=== PATIENT | male | born 1950 | race Caucasian/White ===

== ENCOUNTER 2019-07-07 12:26 | Emergency (ER) | payer MEDICARE, MEDICAID, SELFPAY ==
[2019-07-07] VITALS (10 sets, daily range): BP systolic 115–144; BP diastolic 59–81; PULSE 75–92; RESP 11–17; TEMP 36.6; O2SAT 95–100
--- NOTE | ~2019-07-07 | XR_ITS ---
EXAMINATION: XR chest 2V DATE: 07/07/2019 13:42 INDICATION: Regurgitation. TECHNIQUE: Frontal and lateral views of the chest were obtained on 3 radiographs. COMPARISON: None. FINDINGS: The chest demonstrates clear lungs without pneumonia, pleural effusion, or pneumothorax. Th e heart size is normal. Calcified hilar and mediastinal lymph nodes are consistent with old granuloma tous disease. IMPRESSION: 1. No acute cardiopulmonary disease. Reviewed, dictated and finalized at location A. WARE DEVELOPER INTERN
--- NOTE | ~2019-07-07 | CT_ITS ---
EXAMINATION:CT chest w con DATE: 07/07/2019 14:30 INDICATION: Regurgitation. TECHNIQUE: Computed tomography (CT) of the chest was performed with 75 mL Omnipaque 350 intravenous c ontrast. Automated exposure control and iterative reconstruction technique were employed. The dose-le ngth product (DLP) was 154.15 mGy-cm. COMPARISON: None. FINDINGS: There is mild scarring at the lung apices. There is moderate emphysema. There is mild depen dent atelectasis bilaterally. Calcified pulmonary nodules and calcified hilar and mediastinal lymph n odes are consistent with old granulomatous disease. No pleural effusion. The heart size is normal. Le ft ventricular hypertrophy is noted. No pericardial effusion. There are coronary artery calcification s. Calcifications in the liver and spleen are consistent with old granulomatous disease. There is mil d thoracic spondylosis. IMPRESSION: 1. Moderate emphysema. 2. Left ventricular hypertrophy of the heart. Reviewed, dictated and finalized at location A. HOUSE DISTRIBUTION ASSOCIATE
--- NOTE | 2019-07-07 12:50 | ECG_ITS ---
Measurements Intervals [place] Rate: 75 P: 66 MD: 170 QRS: 0 QRSD: 89 T: 162 QT: 382 QTc: 429 Interpretive Statements SINUS RHYTHM WITH SINUS ARRHYTHMIA POSSIBLE RIGHT ATRIAL ENLARGEMENT POSSIBLE LEFT ATRIAL ENLARGEMENT ST-T WAVE ABNORMALITY IN ANTEROLAT/LAT LEADS- CONSIDER ISCHEMIA ABNORMAL ECG Electronically Signed On 07-07-2019 16:10:31 SPRING TACKER by Den Huber D.O.
[2019-07-07 13:14] LABS: Basophils Absolute Auto 0.09 K/mm3 (0.00-0.10); Basophils Percent Auto 0.9 % (0.0-1.0); Eosinophils Absolute Auto 0.34 K/mm3 (0.02-0.50); Eosinophils Percent Auto 3.5 % (1.0-6.0); Hemoglobin 15.5 g/dL (12.4-15.3); Immature Granulocyte Absolute 0.03 K/mm3 (0.00-0.00); Immature Granulocyte Percent A 0.3 % (0.0-0.0); Lymphocytes Absolute Auto 2.77 K/mm3 (1.10-4.50); Lymphocytes Percent Auto 28.1 % (18.0-42.0); Mean Corpuscular HGB Conc 33.7 g/dL (32.0-36.0); Mean Corpuscular Hemoglobin 30.5 pg (27.0-31.0); Mean Corpuscular Volume 90.6 fL (78.0-102.0); Mean Platelet Volume 10.6 fl (8.7-11.0); Monocytes Absolute Auto 0.87 K/mm3 (0.10-0.90); Monocytes Percent Auto 8.8 % (2.0-11.0); Neutrophils Absolute Auto 5.8 K/mm3 (1.7-7.2); Neutrophils Percent Auto 58.4 % (50.0-70.0); Platelet Count Result 364 K/mm3 (150-420); Red Blood Count 5.08 M/mm3 (4.70-6.10); Red Cell Distribution Width 13.5 % (11.6-14.4); White Blood Count 9.9 K/mm3 (4.8-10.8)
[2019-07-07] MEDS: ONDANSETRON INJ 4 MG/2 ML VIAL IV PUSH ×2 (13:26→15:01)
[2019-07-07 13:28] LABS: Partial Thromboplastin Time 27.8 SEC (22.3-31.6); Prothrombin Time 10.3 Seconds (9.64-11.0)
[2019-07-07 13:31] LABS: Alanine Aminotransferase 24 U/L (16-63); Albumin Level 4.2 g/dL (3.4-5.0); Alkaline Phosphatase 62 U/L (46-116); Anion Gap 17.5 mmol/L (7-16); Aspartate Amino Transferase 22 U/L (15-37); Bilirubin,Total 0.7 mg/dL (0.00-1.00); Blood Urea Nitrogen 16 mg/dL (7-18); Calcium 9.5 mg/dL (8.5-10.1); Carbon Dioxide 23 mmol/L (21-32); Chloride 103 mmol/L (98-108); Estimated Glomerular Filt Rate > 60; Glucose 99 mg/dL (70-99); Osmolality Calculated 289 mOsm/kg (285-295); Potassium 4.5 mmol/L (3.5-5.1); Sodium 139 mmol/L (136-145); Total Protein 8.9 g/dL (6.4-8.2)
[2019-07-07 13:32] LABS: Troponin I < 0.02 ng/mL (0.00-0.056)
--- NOTE | 2019-07-07 13:35 | ED.GENADULT ---
HPI - General Adult General Chief complaint: Unspecified Stated complaint: cant swallow Time Seen by Provider: 07/07/19 13:00 Source: patient and family Mode of arrival: ambulatory Limitations: no limitations History of Present Illness HPI narrative: 69-year-old man with history of heartburn comes in today complaining of regurgitation of any food that he has been trying to eat since last night. He states that after dinner he began to have discomfort in his chest and throat but no difficulty breathing. He says he has been unable to keep anything down since the onset. MD complaint: Can't swallow Onset (ago): hour(s) (18) Location: chest Radiation: non-radiation Relieving factors: none Exacerbating factors: eating Associated symptoms: denies other symptoms Treatments prior to arrival: none Related Data Home Medications Medication Instructions Recorded Confirmed mirtazapine 30 mg PO DAILY 07/07/19 07/07/19 sertraline 75 mg PO DAILY 07/07/19 07/07/19 trazodone 100 mg PO HS 07/07/19 07/07/19 Allergies Allergy/AdvReac Type Severity Reaction Status Date / Time NKDA Allergy Unknown Uncoded 10/25/08 08:41 Review of Systems Constitutional: Constitutional: Denies chills, Denies fatigue, Denies fever(s) and Denies weakness ENT: Reports dysphagia, Denies nasal congestion and Denies sore throat Cardiovascular: Cardiovascular: Reports chest pain ( with vomiting) and Denies radiating jaw, neck or arm pain Respiratory: Respiratory: Denies cough, Denies dyspnea and Denies wheezing Gastrointestinal: Gastrointestinal: Denies abdominal pain, Denies nausea and Reports vomiting ((regurgitation).) Genitourinary: Genitourinary: Denies hematuria, Denies oliguria and Denies dysuria Musculoskeletal: Musculoskeletal: Denies back pain, Denies joint swelling and Denies muscle cramps Integumentary/Breasts: Skin/Breast: Denies pruritus, Denies erythema and Denies rash Neurologic: Denies vertigo, Denies dizziness and Denies syncope Psychiatric: Psychiatric: Denies anxiety and Denies depression Endocrine: Endocrine: Denies polydipsia and Denies polyuria Hematologic/Lymphatic: Hematologic/Lymphatic: Denies easy bleeding and Denies easy bruising Allergic/Immunologic: Allergic/Immunologic: Denies lip swelling and Denies wheezing PMFSH Past Medical History Medical History Anxiety Depression Heartburn Surgical History Surgical History History of appendectomy Social History Social History (Updated 07/07/19 @ 15:36 by Luiz River MD) Smoking status: Former smoker Alcohol use details: drinks socially Substance use: never Living arrangements: with family Exam Const: General: healthy appearing, no acute distress and alert Orientation/consciousness: patient oriented x3 HENMT: Mouth: Yes Normal oral and palatal mucosa present and Yes moist mucous membranes Throat: posterior oropharynx normal and uvula midline Eyes: Conjunctivae: conjunctivae normal Pupils: Equal, round and reactive pupils present EOM: EOMs intact bilaterally Neck: Neck: normal visual inspection ( no masses or swelling or tenderness.), no lymphadenopathy and no meningeal signs Chest: Chest palpation & inspection: normal inspection of the chest and no tenderness Resp: Effort & Inspection: normal respiratory effort and not labored Auscultation: clear to auscultation bilaterally, no crackles, no rales and no rhonchi Cardio: Rate: regular rate Rhythm: regular rhythm Heart sounds: no murmurs GI: Inspection: non-distended GI Palp: Yes Soft to palpation, No Tenderness to palpation present (GI), No Guarding due to palpation present (GI) and No Rigid due to palpation Auscultation: normal bowel sounds Skin: General skin exam: normal color, no jaundice and no pallor Rashes: no rashes Neuro: General: patient oriented x3, moves all
[2019-07-07 14:42] LABS: Add Urine Microscopic? NO; Appearance Urine Clear (Clear); Bilirubin Urine Negative (Negative); Blood Urine Negative (Negative); Color Urine Yellow (Yellow); Glucose Urine UA Negative (Negative); Ketones Urine Negative (Negative); Leukocyte Esterase Ur Negative LEU/UL (Negative); Nitrate Urine Negative (Negative); Protein Urine Negative (Negative); Specific Grav Ur 1.015 (1.010-1.020); Urobilinogen Urine 0.2 mg/dL (0.2-1.0); pH Urine 5.5 (5.0-8.0)
--- NOTE | 2019-07-07 14:47 | PC.NURSE ---
PT TAKEN TO RADIOLOGY DEPARTMENT FOR VQ SCAN
--- NOTE | 2019-07-07 15:37 | PC.NURSE ---
PT TO BE TRANSFERRED BY PRIVATE VEHICLE (SPOUSE DRIVING) TO [facility] FOR OUTPATIENT ENDOSCOPY BY DR. TRUJILLO
== END 2019-07-07 15:47 | disposition home or self-care (01) ==
PROVIDERS: Emergency Provider Emergency Medicine; PCP Nurse Practitioner
DX: K22.2 Esophageal obstruction (principal); Z87.891 Personal history of nicotine dependence; R07.9 Chest pain, unspecified
CPT/HCPCS: 36415; 71046; 71260; 80053; 81003; 84484; 85025; 85610; 85730; 93005; 96374; 96376; 99284; J2405; Q9965

== ENCOUNTER 2019-07-07 16:26 | Day surgery (SDC) | payer MEDICARE, MEDICAID, SELFPAY ==
[2019-07-07 16:44] VITALS: BMI 20.9
[2019-07-07] MEDS: LACTATED RINGERS 1,000 ML 150 ML IV CONT (16:51)
[2019-07-07 16:52] VITALS: BP 139/78; PULSE 102; RESP 22; O2SAT 98
--- NOTE | 2019-07-07 16:52 | WPDANESEPPF ---
Anes - Initial Pre Proc Eval Procedure: Operation Date: 07/07/19 16:45 Proposed Procedures p Esophagogastroduodenoscopy - Naveen Murrieta MD Date/Time: 07/07/19 16:52 Surgeon: Luiz River MD Pre Op Diagnosis: FOOD BOLUS Patient Data Age: 69 Gender: M Height: 1.68 m Weight: 59 kg Allergies Allergy/AdvReac Type Severity Reaction Status Date / Time NKDA Allergy Unknown Uncoded 10/25/08 08:41 Home Medications Medication Instructions Recorded Confirmed Type mirtazapine 30 mg PO DAILY 07/07/19 07/07/19 History sertraline 75 mg PO DAILY 07/07/19 07/07/19 History trazodone 100 mg PO HS 07/07/19 07/07/19 History Patient hx anesthesia problems: none Family hx anesthesia problems: none [facility] Social History Social History (Updated 07/07/19 @ 15:36 by Luiz River MD) Smoking status: Former smoker Substance use: never Anes - Eval Final PreProcedure Day of Procedure 07/07/19 16:52 Patient weight: normal Heart: regular rate and rhythm Lungs: clear to auscultation and normal air movement Airway: Mallampati scale class 1 Neurological: alert and oriented Last oral intake: >/= 8 hours ASA classification: II Emergent: yes Anesthetic plan: proceed Anesthesia type and monitoring: general and standard monitoring Informed Consent: The patient's anesthetic plan and its attendant risks and benefits were discussed with the patient/family/POA. Questions were solicited and answers provided to the satisfaction of the patient/family/POA.
--- NOTE | 2019-07-07 16:54 | P.CONGI_ITS ---
Assessment and Plan Assessment and plan (1) Acute esophageal obstruction: Code(s): K22.2 - Esophageal obstruction Status: Acute Assessment and Plan: will proceed with urgent EGD, more recommendations after endoscopy. (2) Heartburn: Code(s): R12 - Heartburn Status: Acute (3) Depression: Code(s): F32.9 - Major depressive disorder, single episode, unspecified Status: Acute GI Consult Note Consult date/time: 07/07/19 16:54 HPI: Farooq Franks is a 69 year old male with dysphagia to solids, last time he ate was a steak yesterday and unable to eat anything since then. He went to [place] [facility], CT chest showed mass in mid esophagus (food bolus most likely), never had EGD. Review of Systems Constitutional: Constitutional: Denies headache(s) and Denies weakness Eyes: Eyes: Denies blurry vision ENT: Denies Normal hearing present, Denies headache(s) and Denies neck pain Cardiovascular: Cardiovascular: Denies chest pain and Denies dyspnea Respiratory: Respiratory: Denies dyspnea Gastrointestinal: Gastrointestinal: Reports no additional gastrointestinal complaints Genitourinary: Genitourinary: Denies dysuria Musculoskeletal: Musculoskeletal: Denies neck pain Integumentary/Breasts: Skin/Breast: Denies dry skin Neurologic: Reports Normal hearing present, Denies headache(s) and Denies weakness Psychiatric: Psychiatric: Denies anxiety Endocrine: Endocrine: Denies change in body appearance Hematologic/Lymphatic: Hematologic/Lymphatic: Denies easy bleeding Allergic/Immunologic: Allergic/Immunologic: Denies urticaria PMF Social History Social History (Updated 07/07/19 @ 15:36 by Luiz River MD) Smoking status: Former smoker Substance use: never Meds Home Medications and Allergies Home Medications Medication Instructions Recorded Confirmed Type mirtazapine 30 mg PO DAILY 07/07/19 07/07/19 History sertraline 75 mg PO DAILY 07/07/19 07/07/19 History trazodone 100 mg PO HS 07/07/19 07/07/19 History Allergies Allergy/AdvReac Type Severity Reaction Status Date / Time NKDA Allergy Unknown Uncoded 10/25/08 08:41 Vital Signs Vital Signs - 24 hr 07/07/19 16:52 Pulse Rate 102 H Respiratory Rate 22 H Blood Pressure 139/78 Pulse Oximetry 98 Exam Const: Other: uncomfortable because unable to swallow HENMT: General nose exam: Normal nares present Eyes: General: appearance normal, both eyes and all related structures Neck: Neck: no JVD Resp: Auscultation: clear to auscultation bilaterally Cardio: Rate: regular rate Rhythm: regular rhythm GI: Inspection: non-distended GI Palp: Yes Soft to palpation Skin: General skin exam: normal color Neuro: General: gait normal Speech: normal speech Extrem: General: normal to inspection Psych: Mental Status: mental status grossly normal
[2019-07-07 17:47] VITALS: BP 113/78; PULSE 91; RESP 32; O2SAT 96
[2019-07-07 17:57] VITALS: BP 119/65; PULSE 89; RESP 24; O2SAT 90
[2019-07-07 18:07] VITALS: BP 124/63; PULSE 89; RESP 24; O2SAT 92
== END 2019-07-07 18:35 | disposition home or self-care (01) ==
PROVIDERS: Internal Medicine Gastroenterology; PCP Nurse Practitioner; Visit Provider Emergency Medicine
PROC: 0DJ08ZZ Inspection of Upper Intestinal Tract, Via Natural or Artificial Opening Endoscopic (ICD-10-PCS; CPT 43235; principal; 2019-07-07 16:45)
DX: T18.128A Food in esophagus causing other injury, initial encounter (principal); K29.50 Unspecified chronic gastritis without bleeding; Z87.891 Personal history of nicotine dependence; F32.9 Major depressive disorder, single episode, unspecified
CPT/HCPCS: 43239; 43247; 88305; 88342; J0330; J2704; J7120

== ENCOUNTER 2019-08-18 00:12 | Day surgery (SDC) | payer MEDICARE, MEDICAID, SELFPAY ==
[2019-08-12 14:09] VITALS: BMI 22.0
[2019-08-18 10:10] VITALS: BP 121/62; PULSE 73; RESP 16; TEMP 36.5; O2SAT 97
[2019-08-18] MEDS: LACTATED RINGERS 1,000 ML 150 ML IV CONT (10:16)
--- NOTE | 2019-08-18 10:41 | P.PNAN_ITS ---
Anes - Initial Pre Proc Eval Procedure: Operation Date: 08/18/19 11:00 Proposed Procedures p Esophagogastroduodenoscopy - Naveen Murrieta MD Date/Time: 08/18/19 10:41 Surgeon: Naveen Murrieta MD Pre Op Diagnosis: Dysphagia Patient Data Age: 69 Gender: M Height: 5 ft 6 in Weight: 65.4 kg Last Vital Signs Temp 97.7 F 08/18/19 10:10 Pulse 73 08/18/19 10:10 Resp 16 08/18/19 10:10 BP 121/62 08/18/19 10:10 Pulse Ox 97 08/18/19 10:10 Allergies Allergy/AdvReac Type Severity Reaction Status Date / Time NKDA Allergy Unknown Uncoded 08/12/19 14:08 Home Medications Medication Instructions Recorded Confirmed Type mirtazapine 30 mg PO DAILY 07/07/19 08/12/19 History omeprazole 20 mg PO BID #60 cap 07/07/19 08/12/19 Rx sertraline 75 mg PO DAILY 07/07/19 08/12/19 History Patient hx anesthesia problems: none Family hx anesthesia problems: none [facility] Social History Social History (Updated 07/07/19 @ 15:36 by Luiz River MD) Smoking status: Former smoker Substance use: never Anes - Eval Final PreProcedure Day of Procedure 08/18/19 10:41 Patient weight: normal Heart: regular rate and rhythm Lungs: clear to auscultation Airway: Mallampati scale class II Neurological: alert and oriented Last oral intake: >/= 8 hours ASA classification: II Emergent: no Anesthetic plan: proceed Anesthesia type and monitoring: general GIVS and standard monitoring Informed Consent: The patient's anesthetic plan and its attendant risks and benefits were discussed with the patient/family/POA. Questions were solicited and answers provided to the satisfaction of the patient/family/POA.
--- NOTE | 2019-08-18 11:13 | PM.HPGS ---
History of Present Illness History of Present Illness Consent: Risks, benefits, and alternatives have been discussed and questions answered. Patient agrees to proceed with procedure. Chief complaint: Dysphagia Narrative: Farooq Franks is a 69 year old male dysphagia with EGD 06/2019 because food impaction Review of Systems Constitutional: Constitutional: Denies headache(s) and Denies weakness Eyes: Eyes: Denies blurry vision ENT: Reports Normal hearing present, Denies headache(s) and Denies neck pain Cardiovascular: Cardiovascular: Denies chest pain and Denies dyspnea Respiratory: Respiratory: Denies dyspnea Gastrointestinal: Gastrointestinal: Reports no additional gastrointestinal complaints Genitourinary: Genitourinary: Denies dysuria Musculoskeletal: Musculoskeletal: Denies neck pain Integumentary/Breasts: Skin/Breast: Denies dry skin Neurologic: Reports Normal hearing present, Denies headache(s) and Denies weakness Psychiatric: Psychiatric: Denies anxiety Endocrine: Endocrine: Denies change in body appearance Hematologic/Lymphatic: Hematologic/Lymphatic: Denies easy bleeding Allergic/Immunologic: Allergic/Immunologic: Denies urticaria [facility] Social History Social History (Updated 07/07/19 @ 15:36 by Luiz River MD) Smoking status: Former smoker Substance use: never Meds Home Medications and Allergies Home Medications Medication Instructions Recorded Confirmed Type mirtazapine 30 mg PO DAILY 07/07/19 08/12/19 History omeprazole 20 mg PO BID #60 cap 07/07/19 08/12/19 Rx sertraline 75 mg PO DAILY 07/07/19 08/12/19 History Allergies Allergy/AdvReac Type Severity Reaction Status Date / Time NKDA Allergy Unknown Uncoded 08/12/19 14:08 Vital Signs Vital Signs - 24 hr 08/18/19 10:10 Temperature 97.7 F Pulse Rate 73 Respiratory Rate 16 Blood Pressure 121/62 Pulse Oximetry 97 Exam Const: General: comfortable and no acute distress HENMT: General nose exam: Normal nares present Eyes: General: appearance normal, both eyes and all related structures Neck: Neck: no JVD Resp: Auscultation: clear to auscultation bilaterally Cardio: Rate: regular rate Rhythm: regular rhythm GI: Inspection: non-distended GI Palp: Yes Soft to palpation Skin: General skin exam: normal color Neuro: General: gait normal Speech: normal speech Extrem: General: normal to inspection Psych: Mental Status: mental status grossly normal Assessment and Plan Assessment and plan (1) Dysphagia: Code(s): R13.10 - Dysphagia, unspecified Status: Acute Assessment and Plan: will proceed with egd to reassess (2) Heartburn: Code(s): R12 - Heartburn Status: Acute
[2019-08-18 11:33] VITALS: BP 120/75; PULSE 80; RESP 19; O2SAT 100
[2019-08-18 11:43] VITALS: BP 119/68; PULSE 78; RESP 19; O2SAT 100
[2019-08-18 11:53] VITALS: BP 133/68; PULSE 75; RESP 16; O2SAT 97
== END 2019-08-18 13:03 | disposition home or self-care (01) ==
PROVIDERS: PCP Nurse Practitioner; Visit Provider Internal Medicine Gastroenterology
PROC: 0DJ08ZZ Inspection of Upper Intestinal Tract, Via Natural or Artificial Opening Endoscopic (ICD-10-PCS; CPT 43235; principal; 2019-08-18 11:00)
DX: K22.2 Esophageal obstruction (principal); K21.0 Gastro-esophageal reflux disease with esophagitis; K29.50 Unspecified chronic gastritis without bleeding; K44.9 Diaphragmatic hernia without obstruction or gangrene; Z87.891 Personal history of nicotine dependence
CPT/HCPCS: 43239; 43249; 88305; C1726; J2704; J7120

== ENCOUNTER 2019-09-04 07:40 | Emergency (ER) | payer MEDICARE, MEDICAID, SELFPAY ==
--- NOTE | ~2019-09-04 | XR_ITS ---
EXAMINATION: XR chest 1V portable DATE: 09/04/2019 07:55 INDICATION: Dyspnea. TECHNIQUE: frontal view of the chest was obtained. COMPARISON: Chest radiograph and CT dated 07/07/2019 FINDINGS: Mild to moderate emphysema better appreciated on prior CT. Interval development of a basilar predomin ant increased interstitial pattern with peripheral Jh B-lines in the mid to lower lung zones. Mil d groundglass opacities in the lower lung zones. Tiny left pleural effusion with blunting at the left costophrenic angle. No pneumothorax. The cardiomediastinal silhouette is normal. Mild upper thoracic dextrocurvature. IMPRESSION: 1. New basilar predominant increased interstitial pattern with mild groundglass opacity and curly B l doreen most likely mild pulmonary edema although differential includes pneumonia. 2. Mild to moderate emphysema. Reviewed, dictated and finalized at location A. IMPRESSION: 1. New basilar predominant increased interstitial pattern with mild groundglass opacity and curly B lines most likely mild pulmonary edema although differenti al includes pneumonia. 2. Mild to moderate emphysema.
--- NOTE | ~2019-09-04 | CT_ITS ---
EXAMINATION: CTA chest PE protocol DATE: 09/04/2019 08:57 INDICATION: Dyspnea TECHNIQUE: Computed tomography (CT) pulmonary angiogram of the chest was performed with 100 mL Omnipa que-350 intravenous contrast. Additional 3D reconstructions utilizing coronal maximum intensity proje ction (MIP) were performed. Automated exposure control and iterative reconstruction technique were em ployed. The dose-length product was 225.72 mGy-cm. COMPARISON: None FINDINGS: Excellent contrast opacification of the pulmonary arteries. There is mild streak artifact from dense contrast in the superior vena cava and right atrium. Mild scattered respiratory motion artifact most prominent at the lower lung zones where it decreases sensitivity in the basilar subsegmental pulmonar y arteries. No pulmonary embolism. Mild to moderate emphysema. Diffuse smooth septal line thickening most prominent peripherally and in the lower lung zones with additional scattered peripheral predomin ant groundglass opacities most likely related to moderate interstitial and alveolar pulmonary edema. Small left and [id number] right pleural effusions. Mild compressive atelectasis in the depende nt lower lobes. Diffuse bronchial wall thickening/peribronchial cuffing. Heart size is normal. Athero sclerotic coronary artery calcifications. Aortic valve calcification. No pericardial effusion. Thorac ic aorta is normal in caliber with no dissection. Calcified bilateral hilar and mediastinal lymph nod es consistent with old granulomatous disease. No pathologically enlarged thoracic lymphadenopathy. Sm all sliding-type hiatal hernia versus wall thickening the distal esophagus. Hepatic and splenic [place] is consistent with old granulomatous disease. Mild scattered degenerative skeletal changes in the spine and bilateral shoulders. IMPRESSION: 1. No pulmonary embolism. Sensitivity decreased in the smaller subsegmental pulmonary arteries at the lung bases by some respiratory motion. 2. Diffuse interstitial and mild airspace opacities throughout both lungs most likely representing mo derate interstitial and alveolar pulmonary edema. Superimposed pneumonia not excludable but considere d less likely. 3. Small left and [id number] right pleural effusions. 4. Mild to moderate emphysema. Reviewed, dictated and finalized at location A. IMPRESSION: 1. No pulmonary embolism. Sensitivity decreased in the smaller subsegmental pul monary arteries at the lung bases by some respiratory motion. 2. Diffuse interstitial and mild airspace opacities throughout both lungs most likely representing moderate interstitial and alveolar pulmonary edema. Superim posed pneumonia not excludable but considered less likely. 3. Small left and [id number] right pleural effusions. 4. Mild to moderate emphysema.
[2019-09-04 07:41] VITALS: BP 115/80; PULSE 110; RESP 22; TEMP 36.6; O2SAT 95
--- NOTE | 2019-09-04 07:46 | ED.SOB ---
HPI - SOB/Dyspnea General Chief Complaint: Unspecified Stated Complaint: difficulty breathing Source: patient Mode of arrival: ambulatory Limitations: no limitations History of Present Illness HPI Narrative: 69-year-old male presents via EMS with some history of some chest tightness that occurred yesterday, has been having chest discomfort and shortness of breath off and on over the past week, this morning called EMS because patient was having increased difficulty with breathing brought in via EMS. The patient initially came in with a.m. O2 saturation of 88% was placed on 3L of oxygen, current O2 saturations at 95%, patient has been having shortness of breath with some currently no chest pain no diaphoresis no nausea or vomiting. Patient has a history of depression and GERD, quit smoking approximately 3 months ago according to patient and his , family history of atherosclerotic heart disease and coronary artery disease with stent placement. MD elicited complaint: shortness of breath and chest pain Onset (ago): day(s) Context: anxiety Timing: intermittent Severity: moderate Exacerbating factors: exertion Associated symptoms: chest pain Related Data Home Medications Medication Instructions Recorded Confirmed mirtazapine 30 mg PO DAILY 07/07/19 09/04/19 sertraline 75 mg PO DAILY 07/07/19 09/04/19 Allergies Allergy/AdvReac Type Severity Reaction Status Date / Time NKDA Allergy Unknown Uncoded 08/12/19 14:08 Review of Systems Review of Systems: All systems reviewed & are unremarkable except as noted in HPI and below PMFSH Past Medical History Medical History Anxiety Depression Dysphagia Heartburn Surgical History Surgical History History of appendectomy Social History Social History Smoking status: Former smoker Substance use: never Gender identity (if verbalized by the patient): Male Exam Const: General: no acute distress and alert Nutritional Appearance: well nourished Orientation/consciousness: patient oriented x3 HENMT: Head: normal to inspection Eyes: Conjunctivae: conjunctivae normal Pupils: Equal, round and reactive pupils present Neck: Neck: normal visual inspection and no lymphadenopathy Chest: Chest palpation & inspection: normal inspection of the chest Resp: Effort & Inspection: normal respiratory effort, labored and tachypneic Auscultation: diminished lung sounds Cardio: Rate: regular rate and tachycardic GI: GI Palp: Yes Soft to palpation : Testes: Testes normal Back/Spine/Pelvis: Back: no CVA tenderness Skin: General skin exam: normal color Rashes: no rashes Neuro: General: patient oriented x3, moves all extremities and no meningeal signs Extrem: General: normal to inspection Psych: Mental Status: mental status grossly normal Course Transfer Transportation: Other ([facility] ) Transfer rationale: Patient needs higher acuity hospitalization, accepting physician is Dr. Watson Accepting physician: Dr. Watson Transfer comments: after speaking to patient and her personal preference was to be transferred to [facility] in [place]. Critical Care Time Critical Care Time Critical Care Time: Yes Total Critical Care Time: 45 Discharge Plan Discharge Clinical Impression: Non-ST elevation [place] (NSTEMI) CHF (congestive heart failure) Qualifiers: Heart failure type: unspecified Heart failure chronicity: acute Qualified Code(s): I50.9 - Heart failure, unspecified Patient Disposition: Acute Care Hospital Condition: Stable Prescriptions: No Action mirtazapine 30 mg tablet 30 mg PO DAILY RF: 0 sertraline 50 mg tablet 75 mg PO DAILY RF: 0 omeprazole 20 mg capsule,delayed release(DR/EC) 20 mg PO BID Qty: 60 RF: 2 Follow-up/Referrals:
--- NOTE | 2019-09-04 07:47 | ECG_ITS ---
Measurements Intervals [place] Rate: 98 P: 64 VA: 172 QRS: 20 QRSD: 100 T: 118 QT: 371 QTc: 475 Interpretive Statements SINUS RHYTHM LEFT ATRIAL ENLARGEMENT BORDERLINE ST-T WAVE ABNORMALITY- LATERAL LEADS BASELINE ARTIFACT- II, III BORDERLINE ECG Electronically Signed On 09-04-2019 8:32:36 CDT by Den Huber D.O.
[2019-09-04] MEDS: IPRATROPIUM 0.5 MG/ALBUTEROL SULFATE 2.5 MG AMPUL.NEB 3 ML INHALATION (08:03)
[2019-09-04 08:04] VITALS: PULSE 101; RESP 20
[2019-09-04 08:09] LABS: Base Excess ABG -7.1 mmol/L (0-2); HCO3 ABG 18.8 mmol/L (23-29); Oxygen Content ABG 18.6 %vol (16.0-22.0); Oxygen Saturation ABG 96.9 % (95-97); Oxyhemoglobin 96.1 % (94-100); PCO2 ABG 39.2 mmHg (35-45); PO2 ABG 98.5 mmHg (75-85); Total Hemoglobin 13.7 g/dL
[2019-09-04 08:10] LABS: Basophils Absolute Auto 0.05 K/mm3 (0.00-0.10); Basophils Percent Auto 0.7 % (0.0-1.0); Eosinophils Absolute Auto 0.25 K/mm3 (0.02-0.50); Eosinophils Percent Auto 3.6 % (1.0-6.0); Hematocrit 41.1 % (37.0-46.0); Hemoglobin 13.2 g/dL (12.4-15.3); Immature Granulocyte Absolute 0.03 K/mm3 (0.00-0.00); Immature Granulocyte Percent A 0.4 % (0.0-0.0); Lymphocytes Absolute Auto 2.08 K/mm3 (1.10-4.50); Lymphocytes Percent Auto 29.9 % (18.0-42.0); Mean Corpuscular HGB Conc 32.1 g/dL (32.0-36.0); Mean Corpuscular Volume 93.4 fL (78.0-102.0); Mean Platelet Volume 10.7 fl (8.7-11.0); Monocytes Absolute Auto 0.59 K/mm3 (0.10-0.90); Monocytes Percent Auto 8.5 % (2.0-11.0); Neutrophils Percent Auto 56.9 % (50.0-70.0); Platelet Count Result 352 K/mm3 (150-420); Red Cell Distribution Width 13.9 % (11.6-14.4)
[2019-09-04 08:11] LABS: Device NASAL CANNULA; Modified Allen's Test Pass; Site Drawn RIGHT RADIAL
[2019-09-04 08:12] VITALS: PULSE 99; RESP 20
[2019-09-04] MEDS: methylPREDNISolone SOD SUCC 125 MG VIAL IV PUSH (08:19)
[2019-09-04 08:24] LABS: D Dimer 1.62 mg/L (0.19-0.50)
[2019-09-04 08:26] LABS: BNP 1390 pg/mL (0-100)
[2019-09-04 08:27] LABS: Alanine Aminotransferase 14 U/L (16-63); Albumin Level 3.3 g/dL (3.4-5.0); Alkaline Phosphatase 47 U/L (46-116); Anion Gap 17.6 mmol/L (7-16); Aspartate Amino Transferase 23 U/L (15-37); Bilirubin,Total 0.4 mg/dL (0.00-1.00); Blood Urea Nitrogen 15 mg/dL (7-18); Calcium 8.1 mg/dL (8.5-10.1); Carbon Dioxide 22 mmol/L (21-32); Chloride 107 mmol/L (98-108); Estimated CRCL calculation 43 ml/min; Estimated Glomerular Filt Rate 57; Glucose 227 mg/dL (70-99); Osmolality Calculated 303 mOsm/kg (285-295); Potassium 3.6 mmol/L (3.5-5.1); Sodium 143 mmol/L (136-145); Total Protein 7.1 g/dL (6.4-8.2)
[2019-09-04 08:27] LABS: Lactic Acid 2.7 mmol/L (0.4-2.0)
[2019-09-04 08:37] LABS: Influenza Control Valid (Valid)
[2019-09-04 08:45] LABS: Partial Thromboplastin Time 25.5 SEC (22.3-31.6); Prothrombin Time 10.6 Seconds (9.64-11.0)
--- NOTE | 2019-09-04 08:51 | PC.NURSE ---
ceftriaxone ran at 200ml/hr, charted in error 100ml/hr on MAR
[2019-09-04] MEDS: HEPARIN SODIUM 5,000 UNITS/ML VIAL 5000 UNITS (08:58)
[2019-09-04] MEDS: HEPARIN SOD/D5W 100 UNITS/ML 25,000 UNITS/250 ML BAG 7 UNITS (09:48)
[2019-09-04 10:00] VITALS: BP 120/80; PULSE 101; RESP 16; O2SAT 98
[2019-09-04] MEDS: ASPIRIN 81 MG CHEWABLE TABLET 324 MG PO (10:32)
[2019-09-04 10:34] VITALS: BP 111/80; PULSE 90; RESP 18; TEMP 37; O2SAT 100
--- NOTE | 2019-09-04 10:39 | PC.NURSE ---
[facility] paged, no transfer available, page hare for transfer, enroute
[2019-09-04 10:56] VITALS: BP 120/72; PULSE 90; RESP 18; TEMP 36.8; O2SAT 98
== END 2019-09-04 10:57 | disposition short-term general hospital (02) ==
PROVIDERS: Emergency Provider Emergency Medicine
DX: I21.4 Non-ST elevation (NSTEMI) myocardial infarction (principal); I50.9 Heart failure, unspecified; Z87.891 Personal history of nicotine dependence
CPT/HCPCS: 36415; 36600; 71045; 71275; 80053; 82805; 83605; 83735; 83880; 84484; 85025; 85380; 85610; 85730; 87040; 87804; 93005; 94640; 96365; 96367; 96375; 96376; 99285; A9270; J0456; J0696; J1644; J2930; Q9965

== ENCOUNTER 2019-10-06 10:55 | Outpatient (CLI) | payer MEDICARE, SELFPAY ==
[2019-10-06 12:11] LABS: Anion Gap 12.1 mmol/L (7-16); Blood Urea Nitrogen 16 mg/dL (7-18); Calcium 9.5 mg/dL (8.5-10.1); Carbon Dioxide 32 mmol/L (21-32); Chloride 102 mmol/L (98-108); Estimated Glomerular Filt Rate 58; Glucose 82 mg/dL (70-99); Osmolality Calculated 292 mOsm/kg (285-295); Potassium 5.1 mmol/L (3.5-5.1); Sodium 141 mmol/L (136-145)
== END 2019-10-06 10:56 | disposition home or self-care (01) ==
PROVIDERS: PCP Nurse Practitioner
DX: I50.22 Chronic systolic (congestive) heart failure (principal)
CPT/HCPCS: 36415; 80048

== ENCOUNTER 2019-11-19 08:28 | Outpatient (CLI) | payer MEDICARE, SELFPAY ==
[2019-11-19 08:50] LABS: Basophils Percent Auto 1.1 % (0.0-1.0); Eosinophils Percent Auto 9.6 % (1.0-6.0); Hematocrit 37.5 % (37.0-46.0); Hemoglobin 12.4 g/dL (12.4-15.3); Immature Granulocyte Absolute 0.04 K/mm3 (0.00-0.00); Immature Granulocyte Percent A 0.4 % (0.0-0.0); Lymphocytes Absolute Auto 2.61 K/mm3 (1.10-4.50); Lymphocytes Percent Auto 27.9 % (18.0-42.0); Mean Corpuscular HGB Conc 33.1 g/dL (32.0-36.0); Mean Corpuscular Hemoglobin 28.3 pg (27.0-31.0); Mean Corpuscular Volume 85.6 fL (78.0-102.0); Mean Platelet Volume 10.6 fl (8.7-11.0); Monocytes Absolute Auto 0.74 K/mm3 (0.10-0.90); Monocytes Percent Auto 7.9 % (2.0-11.0); Neutrophils Percent Auto 53.1 % (50.0-70.0); Platelet Count Result 354 K/mm3 (150-420); Red Blood Count 4.38 M/mm3 (4.70-6.10); Red Cell Distribution Width 14.4 % (11.6-14.4); White Blood Count 9.4 K/mm3 (4.8-10.8)
[2019-11-19 09:07] LABS: Hemoglobin A1C 5.6 % (<5.7)
[2019-11-19 09:34] LABS: Alanine Aminotransferase 40 U/L (16-63); Albumin Level 4.1 g/dL (3.4-5.0); Alkaline Phosphatase 85 U/L (46-116); Anion Gap 10.4 mmol/L (7-16); Aspartate Amino Transferase 49 U/L (15-37); Bilirubin,Total 0.4 mg/dL (0.00-1.00); Blood Urea Nitrogen 15 mg/dL (7-18); Carbon Dioxide 31 mmol/L (21-32); Chloride 99 mmol/L (98-108); Cholesterol 204 mg/dL (0-200); Estimated Glomerular Filt Rate > 60; Glucose 104 mg/dL (70-99); HDL Direct 39 mg/dL (40-60); LDL Cholesterol Calculated 119 mg/dL (<130); Osmolality Calculated 282 mOsm/kg (285-295); Potassium 4.4 mmol/L (3.5-5.1); Sodium 136 mmol/L (136-145); Thyroid Stimulating Hormone 4.32 uIU/mL (0.36-3.74); Total Protein 7.7 g/dL (6.4-8.2); Triglycerides 228 mg/dL (0-150)
== END 2019-11-19 08:29 | disposition home or self-care (01) ==
LOC: CHSLAB 08:31
PROVIDERS: PCP Nurse Practitioner; Visit Provider Nurse Practitioner Family
DX: E78.5 Hyperlipidemia, unspecified (principal); R73.03 Prediabetes
CPT/HCPCS: 36415; 80053; 80061; 83036; 84443; 85025

== ENCOUNTER 2019-11-24 10:16 | Outpatient (CLI) | payer MEDICARE, MEDICAID, SELFPAY ==
--- NOTE | ~2019-11-24 | XR_ITS ---
EXAMINATION: XR knee LT 3V DATE: 11/24/2019 11:00 INDICATION: Left infrapatellar soft tissue mass. TECHNIQUE: 3 views of left knee were obtained. COMPARISON: None. FINDINGS: Bone alignment is normal. No fracture. There is mild tricompartmental osteoarthritis. There is a moderate-sized knee joint effusion. There is a subcutaneous infrapatellar mass. IMPRESSION: 1. Subcutaneous infrapatellar mass. This finding may be bursitis or a hematoma. Neoplasm cannot be ex cluded. 2. Mild left knee osteoarthritis. 3. Moderate-sized left knee joint effusion. Reviewed, dictated and finalized at location A. IMPRESSION: 1. Subcutaneous infrapatellar mass. This finding may be bursitis or a hematoma. Neoplasm cannot be excluded. 2. Mild left knee osteoarthritis. 3. Moderate-sized left knee joint effusion.
== END 2019-11-24 10:17 | disposition home or self-care (01) ==
PROVIDERS: PCP Nurse Practitioner Family; Visit Provider Nurse Practitioner Family
DX: M25.562 Pain in left knee (principal)
CPT/HCPCS: 73562

== ENCOUNTER 2019-11-28 03:11 | Emergency (ER) | payer MEDICARE, MEDICAID, SELFPAY ==
[2019-11-28] VITALS (11 sets, daily range): BP systolic 96–117; BP diastolic 49–61; PULSE 97–102; RESP 18–20; TEMP 37.4–38.3; O2SAT 97–99
--- NOTE | ~2019-11-28 | CT_ITS ---
EXAMINATION: CT chest high resolution wo co DATE: 11/28/2019 06:08 INDICATION: Fever of unknown origin. Cough. Previous smoker. TECHNIQUE: Computed tomography (CT) of the chest was performed without intravenous contrast. The dose -length product was 224.91 mGy-cm. Automated exposure control and iterative reconstruction technique were employed. COMPARISON: 09/04/2019 FINDINGS: Right paratracheal lymphadenopathy measuring 1 cm, likely reactive. Small left pleural effu joycelyn. Borderline heart size. Status post median sternotomy for CABG. Patchy predominantly right upper lobe groundglass opacities. Dependent atelectasis. No endobronchial lesion. There is centrilobular e mphysema. There is evidence for chronic granulomatous disease. Moderate gastric wall/fold thickening upper abdomen, suspicious for gastritis. IMPRESSION: 1. Patchy predominantly right upper lobe groundglass opacities, suspicious for pneumonia. 2: Small left pleural effusion. 3: Mild mediastinal lymphadenopathy, likely reactive. 4: Emphysema. 5: Moderate gastric wall/fold thickening, suspicious for gastritis. Reviewed, dictated and finalized at location A.
--- NOTE | ~2019-11-28 | XR_ITS ---
EXAMINATION: XR chest 1V portable 11/28/2019 04:23 INDICATION: Fever. Evaluate for pneumonia. PROCEDURE: AP portable chest COMPARISON: No prior studies for comparison. FINDINGS: The lungs are clear. The cardiomediastinal silhouette is within normal limits. There are no pleural effusions. There is no pneumothorax suspected. The lungs are hyperinflated which is cons istent with, but not diagnostic of chronic obstructive pulmonary disease. Status post median sternoto my for CABG. There is evidence for chronic granulomatous disease. IMPRESSION: 1: NO ACUTE CARDIOPULMONARY DISEASE. Reviewed, dictated and finalized at location A.
--- NOTE | 2019-11-28 04:02 | ECG_ITS ---
Measurements Intervals [place] Rate: 100 P: 57 W[place]: 180 QRS: 1 QRSD: 93 T: 110 QT: 366 QTc: 473 Interpretive Statements SINUS TACHYCARDIA NONSPECIFIC ST & T-WAVE ABNORMALITY- ANTEROLAT/LAT LEADS BORDERLINE ECG Electronically Signed On 11-28-2019 8:18:32 CDT by Den Huber D.O.
--- NOTE | 2019-11-28 04:02 | ED.GENADULT ---
HPI - General Adult General Chief complaint: Weakness Stated complaint: Leg Weakness Source: patient Mode of arrival: ambulatory Limitations: no limitations History of Present Illness HPI narrative: 69 y.o. with hx of CAD and CHF c/o feeling weak, onset yesterday. He later started feeling unsteady, and finally got so weak during the night he couldn't walk without assistance. He feels like he weighs a ton, aching all over. Has also felt his heart jumping out of his chest. He has a chronic cough which hasn't changed. He denies feeling short of breath. For the last week his stools have been black. He denies abdominal pain. His states he's been more pale x 3 - 4 days. Pt has not decided on his DNR status but would like to be around for a while . Related Data Home Medications Medication Instructions Recorded Confirmed mirtazapine 30 mg PO QPM 07/07/19 11/28/19 sertraline 50 mg PO DAILY 07/07/19 11/28/19 aspirin [Adult Low Dose Aspirin] 81 mg PO DAILY 11/18/19 11/28/19 atorvastatin 40 mg PO HS 11/18/19 11/28/19 furosemide 20 mg PO DAILY 11/18/19 11/28/19 metoprolol succinate 75 mg PO DAILY 11/18/19 11/28/19 omeprazole 20 mg PO DAILY 11/18/19 11/28/19 warfarin 2 mg PO DAILY 11/18/19 11/28/19 lisinopril 2.5 mg PO DAILY 11/28/19 11/28/19 Allergies Allergy/AdvReac Type Severity Reaction Status Date / Time NKDA Allergy Unknown Uncoded 08/12/19 14:08 Review of Systems Constitutional: Constitutional: Reports no additional constitutional complaints Eyes: Comments: vision slightly distorted this evening ENT: Denies vertigo and Denies sore throat Cardiovascular: Cardiovascular: Denies chest pain Respiratory: Respiratory: Reports no additional respiratory complaints Gastrointestinal: Gastrointestinal: Denies abdominal pain, Denies diarrhea, Reports nausea and Denies vomiting Genitourinary: Genitourinary: Denies dysuria Musculoskeletal: Musculoskeletal: Reports myalgias Neurologic: Denies headache(s) Hematologic/Lymphatic: Hematologic/Lymphatic: Denies easy bleeding PMFSH Past Medical History Medical History (Updated 11/28/19 @ 07:18 by Luiz Garg MD) Anxiety CAD (coronary artery disease) Depression Dysphagia Heartburn Surgical History Surgical History (Updated 11/28/19 @ 04:13 by Luiz Garg MD) History of appendectomy Hx of CABG Family History Family History (Updated 11/18/19 @ 15:14 by Cathi Cowan, RN) Father Cancer Mother Cancer Social History Social History (Updated 11/18/19 @ 15:33 by Cathi Cowan, RN) Smoking packs per day: 1 Smoking cigarettes per day: 20.0 Years smoked: 49 Smoking pack-years: 49.00 Smoking status: Former smoker Tobacco type: cigarettes Second hand tobacco smoke exposure: No Substance use: never Gender identity (if verbalized by the patient): Male Exam Const: General: alert HENMT: Mouth: Yes moist mucous membranes Eyes: Conjunctivae: conjunctivae normal Neck: Neck: no lymphadenopathy Chest: Chest palpation & inspection: normal inspection of the chest Resp: Auscultation: rales (bibasilar, R > L) Cardio: Rate: regular rate Rhythm: regular rhythm GI: GI Palp: Yes Soft to palpation, No Tenderness to palpation present (GI) and No Guarding due to palpation present (GI) : General: No CVA tenderness Neuro: General: patient oriented x3 Extrem: General: no edema Psych: Appearance: grossly normal Affect: normal affect Thought content: Yes Normal thought content present Course Consultations Consultation #1: Patient needs GI endoscopy/higher level of care. Family requests [facility]. Discussed with , [facility] transcription, who accepts pt. in transfer. Will hang first unit of blood prior to departure. Discussed with Dr. Coburn CT chest showing atypical pneumonia RUL, Covid/mycoplasma also possible.Start Rocephin and azithromycin. Pt is ready for transport. There is some nausea so will no
[2019-11-28 04:29] LABS: Occult Blood Positive (Negative)
[2019-11-28 04:29] LABS: Basophils Absolute Auto 0.02 K/mm3 (0.00-0.10); Basophils Percent Auto 0.2 % (0.0-1.0); Eosinophils Absolute Auto 0.25 K/mm3 (0.02-0.50); Eosinophils Percent Auto 2.3 % (1.0-6.0); Immature Granulocyte Absolute 0.13 K/mm3 (0.00-0.00); Immature Granulocyte Percent A 1.2 % (0.0-0.0); Lymphocytes Absolute Auto 1.72 K/mm3 (1.10-4.50); Lymphocytes Percent Auto 15.8 % (18.0-42.0); Mean Corpuscular HGB Conc 30.5 g/dL (32.0-36.0); Mean Corpuscular Hemoglobin 28.1 pg (27.0-31.0); Mean Corpuscular Volume 92.1 fL (78.0-102.0); Mean Platelet Volume 10.2 fl (8.7-11.0); Monocytes Absolute Auto 0.71 K/mm3 (0.10-0.90); Monocytes Percent Auto 6.5 % (2.0-11.0); Nucleated Red Blood Cells Absolute Auto 0.05 K/mm3 (0.00-0.00); Nucleated Red Blood Cells Perc 0.5 % (0-0.0); Platelet Count Result 288 K/mm3 (150-420); Red Blood Count 1.39 M/mm3 (4.70-6.10); Red Cell Distribution Width 17.1 % (11.6-14.4); White Blood Count 10.9 K/mm3 (4.8-10.8)
[2019-11-28] MEDS: ONDANSETRON HCL ODT 4 MG TABLET PO (04:32)
[2019-11-28 04:39] LABS: Add Urine Microscopic? NO; Appearance Urine Clear (Clear); Bilirubin Urine Negative (Negative); Blood Urine Negative (Negative); Color Urine Yellow (Yellow); Glucose Urine UA Negative (Negative); Ketones Urine Negative (Negative); Leukocyte Esterase Ur Negative (Negative); Nitrate Urine Negative (Negative); Protein Urine Negative (Negative); pH Urine 5.5 (5.0-8.0)
[2019-11-28 04:41] LABS: Hematocrit 12.8 % (37.0-46.0); Hemoglobin 3.9 g/dL (12.4-15.3)
[2019-11-28 04:45] LABS: Influenza Control Valid (Valid); Lactic Acid 1.6 mmol/L (0.4-2.0)
[2019-11-28 04:46] LABS: BNP 395 pg/mL (0-100)
[2019-11-28 04:52] LABS: CRP 0.4 mg/dL (0.0-0.9)
[2019-11-28 04:53] LABS: Ferritin 42 ng/mL (26-388)
[2019-11-28] MEDS: PANTOPRAZOLE SODIUM IV 40 MG VIAL IV PUSH (05:04)
[2019-11-28 05:18] LABS: INR 4.8; Prothrombin Time 47.1 Seconds (9.64-11.0)
--- NOTE | 2019-11-28 05:31 | PC.NURSE ---
call to [facility] for transfer , info given to sergio , awaiting call back
--- NOTE | 2019-11-28 06:04 | PC.NURSE ---
pt returned from xray for ct scan
--- NOTE | 2019-11-28 06:17 | PC.NURSE ---
pt repositioned in the bed. erp speaking with dr hudson from [facility]
[2019-11-28] MEDS: SODIUM CHLORIDE 0.9% IV 250 ML 30 ML IV CONT (06:36)
--- NOTE | 2019-11-28 06:52 | PC.NURSE ---
blood unit # 1 infusing as ordered. pt sleeping . no distress , no complaints per pt.
[2019-11-28] MEDS: SODIUM CHLORIDE 0.9% IV 500 ML 999 ML IV CONT (07:14)
[2019-11-28] MEDS: cefTRIAXone 1 GM in DEXTROSE 5% IN WATER 50 ML IVPB (07:22)
--- NOTE | 2019-11-28 07:24 | PC.NURSE ---
call for [facility] for transfer. [facility] not available
--- NOTE | 2019-11-28 07:57 | PC.NURSE ---
marcos here for [facility] , report given, blood continues infusing with no reaction, no shortness of breath per pt. pt loaded to ems cot. extremities remain pale in color.
--- NOTE | 2019-11-28 08:01 | PC.NURSE ---
unit #1 blood sent with pt to anand [facility]on in lab notified of same.
[2019-11-29 11:01] LABS: SARS-CoV-2 RNA PCR Negative
== END 2019-11-28 07:55 | disposition short-term general hospital (02) ==
PROVIDERS: Emergency Provider Family Medicine; PCP Nurse Practitioner
DX: K92.2 Gastrointestinal hemorrhage, unspecified (principal); J18.9 Pneumonia, unspecified organism; I25.10 Atherosclerotic heart disease of native coronary artery without angina pectoris; Z95.1 Presence of aortocoronary bypass graft; Z87.891 Personal history of nicotine dependence; Z20.828 Contact with and (suspected) exposure to other viral communicable diseases
CPT/HCPCS: 36415; 36430; 71045; 71250; 81003; 82272; 82728; 83605; 83880; 85025; 85610; 86140; 86850; 86900; 86901; 86920; 87040; 87635; 87804; 93005; 96361; 96365; 96375; 99283; 99285; A9270; C9113; C9803; J0696; J7040; J7050; P9016; U0003

== ENCOUNTER 2019-12-06 12:43 | Outpatient (RCR) | payer MEDICARE, MEDICAID, SELFPAY ==
[2019-11-18 13:45] VITALS: BP 107/61; PULSE 86; RESP 16; O2SAT 95; BMI 25.4
== END 2020-02-16 23:59 | disposition home or self-care (01) ==
PROVIDERS: PCP Nurse Practitioner
DX: Z95.1 Presence of aortocoronary bypass graft (principal)
CPT/HCPCS: 93798

== ENCOUNTER 2019-12-06 12:46 | Outpatient (RCR) | payer MEDICARE, SELFPAY ==
[2019-09-16 10:15] LABS: INR 2.5; Prothrombin Time 24.8 Seconds (9.64-11.0)
[2019-10-14 09:29] LABS: INR 1.2; Prothrombin Time 12.3 Seconds (9.64-11.0)
[2019-10-27 12:29] LABS: INR 3.1; Prothrombin Time 30.8 Seconds (9.64-11.0)
[2019-11-03 11:36] LABS: INR 1.7; Prothrombin Time 17.5 Seconds (9.64-11.0)
[2019-12-06 13:11] LABS: Prothrombin Time 10.4 Seconds (9.64-11.0)
== END 2019-12-15 23:59 | disposition home or self-care (01) ==
LOC: CHSLAB 12:46
DX: I35.0 Nonrheumatic aortic (valve) stenosis (principal); Z95.2 Presence of prosthetic heart valve; I05.9 Rheumatic mitral valve disease, unspecified; Z79.01 Long term (current) use of anticoagulants
CPT/HCPCS: 36415; 85610

== ENCOUNTER 2020-01-17 08:59 | Outpatient (CLI) | payer MEDICARE, SELFPAY ==
[2020-01-17 09:48] LABS: Cholesterol 164 mg/dL (0-200); HDL Direct 47 mg/dL (40-60); LDL Cholesterol Calculated 94 mg/dL (<130); Triglycerides 116 mg/dL (0-150)
== END 2020-01-17 09:00 | disposition home or self-care (01) ==
LOC: CHSLAB 09:01
PROVIDERS: PCP Nurse Practitioner
DX: E78.2 Mixed hyperlipidemia (principal)
CPT/HCPCS: 36415; 80061

== ENCOUNTER 2020-02-17 09:00 | Outpatient (RCR) | payer MEDICAID, SELFPAY | END 2020-02-17 23:59 | disposition home or self-care (01) | LOC: ANHAUDIO 09:00 | PROVIDERS: PCP Nurse Practitioner; Visit Provider Nurse Practitioner | DX: Z46.1 Encounter for fitting and adjustment of hearing aid (principal) | CPT/HCPCS: 99199; V5264 ==

== ENCOUNTER 2020-02-18 09:23 | Outpatient (RCR) | payer MEDICARE, MEDICAID, SELFPAY ==
[2020-02-17 00:01] VITALS: BP 107/61; PULSE 86; RESP 16; O2SAT 95; BMI 25.4
== END 2020-03-15 14:51 | disposition home or self-care (01) ==
PROVIDERS: PCP Nurse Practitioner
DX: Z95.1 Presence of aortocoronary bypass graft (principal)
CPT/HCPCS: 93798

== ENCOUNTER 2020-03-03 09:03 | Outpatient (CLI) | payer MEDICARE, MEDICAID, SELFPAY ==
[2020-03-03 10:25] LABS: Cholesterol 141 mg/dL (0-200); HDL Direct 53 mg/dL (40-60); LDL Cholesterol Calculated 69 mg/dL (<130); Triglycerides 94 mg/dL (0-150)
== END 2020-03-03 09:04 | disposition home or self-care (01) ==
DX: E78.2 Mixed hyperlipidemia (principal)
CPT/HCPCS: 36415; 80061

== ENCOUNTER 2020-07-04 09:18 | Outpatient (CLI) | payer MEDICARE, SELFPAY ==
[2020-07-04 10:20] LABS: Anion Gap 8 mmol/L (8-16); Blood Urea Nitrogen 12 mg/dL (7-18); Calcium 8.8 mg/dL (8.5-10.1); Carbon Dioxide 29 mmol/L (21-32); Chloride 104 mmol/L (98-108); Estimated Glomerular Filt Rate > 60; Glucose 95 mg/dL (70-99); Osmolality Calculated 291 mOsm/kg (285-295); Potassium 4.7 mmol/L (3.5-5.1); Sodium 141 mmol/L (136-145)
== END 2020-07-04 09:19 | disposition home or self-care (01) ==
LOC: CHSLAB 09:22
PROVIDERS: PCP Nurse Practitioner
DX: I50.22 Chronic systolic (congestive) heart failure (principal)
CPT/HCPCS: 36415; 80048

== ENCOUNTER 2020-08-02 11:30 | Outpatient (RCR) | payer MEDICAID, SELFPAY | END 2020-08-02 23:59 | disposition home or self-care (01) | LOC: ANHAUDIO 11:30 | DX: Z46.1 Encounter for fitting and adjustment of hearing aid (principal) | CPT/HCPCS: 99199 ==

== ENCOUNTER → 2020-08-26 00:25 | Outpatient (CLI) | payer MEDICARE, MEDICAID, SELFPAY ==
[2020-08-26 19:13] LABS: SARS-CoV-2 RNA PCR Negative
== END ==
PROVIDERS: PCP Nurse Practitioner; Visit Provider Internal Medicine Gastroenterology
DX: Z01.812 Encounter for preprocedural laboratory examination (principal); Z20.822 Contact with and (suspected) exposure to COVID-19
CPT/HCPCS: C9803; U0003; U0005

== ENCOUNTER 2020-08-30 02:14 | Day surgery (SDC) | payer MEDICARE, MEDICAID, SELFPAY ==
[2020-08-17 10:15] VITALS: BMI 24.9
[2020-08-30 07:47] VITALS: BP 160/79; PULSE 72; RESP 20; TEMP 36.6; O2SAT 98
[2020-08-30] MEDS: LACTATED RINGERS 1,000 ML 150 ML IV CONT (07:59)
--- NOTE | 2020-08-30 08:32 | P.PNAN_ITS ---
Anes - Initial Pre Proc Eval Procedure: Operation Date: 08/30/20 09:00 Proposed Procedures p Esophagogastroduodenoscopy - Naveen Murrieta MD Date/Time: 08/30/20 08:32 Surgeon: Naveen Murrieta MD Pre Op Diagnosis: dysphagia Patient Data Age: 70 Gender: M Height: 5 ft 6 in Weight: 73.4 kg Last Vital Signs Temp 97.9 F 08/30/20 07:47 Pulse 72 08/30/20 07:47 Resp 20 08/30/20 07:47 BP 160/79 H 08/30/20 07:47 Pulse Ox 98 08/30/20 07:47 Allergies Allergy/AdvReac Type Severity Reaction Status Date / Time No Known Allergies Allergy Verified 08/30/20 07:46 Home Medications Medication Instructions Recorded Confirmed Type mirtazapine 30 mg PO QPM 07/07/19 08/17/20 History sertraline 100 mg PO DAILY 07/07/19 08/17/20 History aspirin [Adult Low Dose Aspirin] 81 mg PO DAILY 11/18/19 08/17/20 History atorvastatin 40 mg PO HS 11/18/19 08/17/20 History metoprolol succinate 25 mg PO DAILY 11/18/19 08/17/20 History lisinopril 2.5 mg PO DAILY 11/28/19 08/17/20 History ezetimibe 10 mg tablet 10 mg PO DAILY 06/15/20 08/17/20 History omeprazole 20 mg capsule,delayed 20 mg PO DAILY #30 cap 06/15/20 08/17/20 Rx release rosuvastatin 10 mg tablet 10 mg PO DAILY 06/15/20 08/17/20 History Patient hx anesthesia problems: none Family hx anesthesia problems: none PMFSH Past Medical History Medical History (Updated 06/15/20 @ 12:01 by Naveen Murrieta MD) Anxiety CAD (coronary artery disease) Depression Dysphagia GERD (gastroesophageal reflux disease) Heartburn Schatzki's ring Surgical History Surgical History History of appendectomy Hx of CABG Family History Family History Father Cancer Mother Cancer Social History Social History Smoking packs per day: 1 Smoking cigarettes per day: 20.0 Years smoked: 49 Smoking pack-years: 49.00 Smoking status: Never smoker Tobacco type: cigarettes Second hand tobacco smoke exposure: No Alcohol intake: current Drinks per week: 3 Alcohol use details: beer Substance use: never Living arrangements: with family Gender identity (if verbalized by the patient): Male Spiritual care concerns: No Anes - Eval Final PreProcedure Day of Procedure 08/30/20 08:32 Patient weight: normal Heart: regular rate and rhythm Lungs: clear to auscultation Airway: Mallampati scale class III Neurological: alert and oriented Last oral intake: >/= 8 hours ASA classification: III Emergent: no Anesthetic plan: proceed Anesthesia type and monitoring: general GIVS and standard monitoring Informed Consent: The patient's anesthetic plan and its attendant risks and benefits were discussed with the patient/family/POA. Questions were solicited and answers provided to the satisfaction of the patient/family/POA.
--- NOTE | 2020-08-30 08:54 | PM.HPGS ---
History of Present Illness History of Present Illness Consent: Risks, benefits, and alternatives have been discussed and questions answered. Patient agrees to proceed with procedure. Chief complaint: dysphagia Narrative: Farooq Franks is a 70 year old male with more gerd after discontinued his ppi (now he is back on it), also dysphagia (had ring that was dilated up to 18mm) Review of Systems Constitutional: Constitutional: Denies headache(s) and Denies weakness Eyes: Eyes: Denies blurry vision ENT: Reports Normal hearing present, Denies headache(s) and Denies neck pain Cardiovascular: Cardiovascular: Denies chest pain and Denies dyspnea Respiratory: Respiratory: Denies dyspnea Gastrointestinal: Gastrointestinal: Reports no additional gastrointestinal complaints Genitourinary: Genitourinary: Denies dysuria Musculoskeletal: Musculoskeletal: Denies neck pain Integumentary/Breasts: Skin/Breast: Denies dry skin Neurologic: Reports Normal hearing present, Denies headache(s) and Denies weakness Psychiatric: Psychiatric: Denies anxiety Endocrine: Endocrine: Denies change in body appearance Hematologic/Lymphatic: Hematologic/Lymphatic: Denies easy bleeding Allergic/Immunologic: Allergic/Immunologic: Denies urticaria [facility] Past Medical History Medical History (Updated 06/15/20 @ 12:01 by Naveen Murrieta MD) Anxiety CAD (coronary artery disease) Depression Dysphagia GERD (gastroesophageal reflux disease) Heartburn Schatzki's ring Surgical History Surgical History (Reviewed 06/15/20 @ 11:47 by Savanah Valdez [facility] [address]) History of appendectomy Hx of CABG Family History Family History Father Cancer Mother Cancer Social History Social History Smoking packs per day: 1 Smoking cigarettes per day: 20.0 Years smoked: 49 Smoking pack-years: 49.00 Smoking status: Never smoker Tobacco type: cigarettes Second hand tobacco smoke exposure: No Alcohol intake: current Drinks per week: 3 Alcohol use details: beer Substance use: never Living arrangements: with family Gender identity (if verbalized by the patient): Male Spiritual care concerns: No Meds Home Medications and Allergies Home Medications Medication Instructions Recorded Confirmed Type mirtazapine 30 mg PO QPM 07/07/19 08/17/20 History sertraline 100 mg PO DAILY 07/07/19 08/17/20 History aspirin [Adult Low Dose Aspirin] 81 mg PO DAILY 11/18/19 08/17/20 History atorvastatin 40 mg PO HS 11/18/19 08/17/20 History metoprolol succinate 25 mg PO DAILY 11/18/19 08/17/20 History lisinopril 2.5 mg PO DAILY 11/28/19 08/17/20 History ezetimibe 10 mg tablet 10 mg PO DAILY 06/15/20 08/17/20 History omeprazole 20 mg capsule,delayed 20 mg PO DAILY #30 cap 06/15/20 08/17/20 Rx release rosuvastatin 10 mg tablet 10 mg PO DAILY 06/15/20 08/17/20 History Allergies Allergy/AdvReac Type Severity Reaction Status Date / Time No Known Allergies Allergy Verified 08/30/20 07:46 Vital Signs Vital Signs - 24 hr 08/30/20 07:47 Temperature 97.9 F Pulse Rate 72 Respiratory Rate 20 Blood Pressure 160/79 H Pulse Oximetry 98 Exam Const: General: comfortable and no acute distress HENMT: General nose exam: Normal nares present Eyes: General: appearance normal, both eyes and all related structures Neck: Neck: no JVD Resp: Auscultation: clear to auscultation bilaterally Cardio: Rate: regular rate Rhythm: regular rhythm GI: Inspection: non-distended GI Palp: Yes Soft to palpation Skin: General skin exam: normal color Neuro: General: gait normal Speech: normal speech Extrem: General: normal to inspection Psych: Mental Status: mental status grossly normal Assessment and Plan Assessment and plan (1) GERD (gastroesophageal reflux disease): Code(s): K21.9 - Gastro-esophageal
[2020-08-30 09:10] VITALS: BP 104/66; PULSE 68; RESP 16; O2SAT 98
[2020-08-30 09:20] VITALS: BP 105/66; PULSE 66; RESP 14; O2SAT 95
[2020-08-30 09:30] VITALS: BP 122/72; PULSE 67; RESP 10; O2SAT 98
== END 2020-08-30 09:45 | disposition home or self-care (01) ==
PROVIDERS: PCP Nurse Practitioner; Visit Provider Internal Medicine Gastroenterology
PROC: 0DJ08ZZ Inspection of Upper Intestinal Tract, Via Natural or Artificial Opening Endoscopic (ICD-10-PCS; CPT 43235; principal; 2020-08-30 09:00)
DX: K22.2 Esophageal obstruction (principal); K44.9 Diaphragmatic hernia without obstruction or gangrene; K29.70 Gastritis, unspecified, without bleeding; K21.9 Gastro-esophageal reflux disease without esophagitis; I25.10 Atherosclerotic heart disease of native coronary artery without angina pectoris; F41.8 Other specified anxiety disorders; Z95.1 Presence of aortocoronary bypass graft; Z79.82 Long term (current) use of aspirin; Z87.891 Personal history of nicotine dependence
CPT/HCPCS: 43239; 43249; 88305; C1726; J2704; J7120

== ENCOUNTER 2020-12-22 14:08 | Outpatient (RCR) | payer MEDICARE, MEDICAID, SELFPAY | END 2020-12-22 23:59 | disposition home or self-care (01) | LOC: ANHAUDIO 14:08 | PROVIDERS: PCP Nurse Practitioner; Visit Provider Nurse Practitioner | DX: Z46.1 Encounter for fitting and adjustment of hearing aid (principal) | CPT/HCPCS: 99199 ==

== ENCOUNTER 2021-04-11 14:50 | Outpatient (RCR) | payer MEDICARE, MEDICAID, SELFPAY | END 2021-04-11 23:59 | disposition home or self-care (01) | LOC: ANHAUDIO 14:50 | PROVIDERS: PCP Nurse Practitioner; Visit Provider Nurse Practitioner | DX: Z46.1 Encounter for fitting and adjustment of hearing aid (principal) | CPT/HCPCS: 99199 ==

== ENCOUNTER 2021-05-08 07:38 | Emergency (ER) | payer MEDICARE, MEDICAID, SELFPAY ==
--- NOTE | ~2021-05-08 | CT_ITS ---
EXAMINATION: CT brain [facility] EXAM DATE: 05/08/2021 09:07 INDICATION: Dizziness. TECHNIQUE: Spiral CT of the head was performed without contrast. Axial, coronal and sagittal images were reviewed. The dose-length product (DLP) for this examination was 529.67 mGy-cm. The exposure w as tailored according to patient size, and iterative reconstruction (ASIR) was used as additional dos e reduction technique. There is no prior study for comparison. FINDINGS: There is no acute intraparenchymal hemorrhage. No evidence of intraparenchymal brain mass lesion. No evidence of acute infarction. Please note that initial head CT has limited sensitivity f or small or acute infarctions. There is mild periventricular and subcortical hypodensity, nonspecific but probably related to small vessel ischemic disease. There is mild to moderate prominence of the sulci and ventricles related to cerebral atrophy. There is intracranial carotid arteriosclerosis. There are no extra-axial collections. There is no mass effect or midline shift. The orbits are unr emarkable. Soft tissue is unremarkable. The visualized sinuses and mastoid air cells are well aerat ed. IMPRESSION: 1. No acute intracranial findings. 2. Chronic age related findings. Reviewed, dictated and finalized at location A. ROPOLOGIST
--- NOTE | ~2021-05-08 | XR_ITS ---
EXAMINATION: XR chest 1V portable EXAM DATE: 05/08/2021 09:17 INDICATION: dizzy and confusion this am, great difficulty hearing. TECHNIQUE: Portable AP frontal chest x-ray was obtained. Comparison is made to prior examination from 11/28/2019. FINDINGS: Sternotomy wires are present without findings to suggest sternal dehiscence. Mild hyperinfl ation. The lungs are clear. There are no pleural effusions. The cardiomediastinal silhouette is wit hin normal limits. There is no pneumothorax suspected. The bones and soft tissues are unremarkable. IMPRESSION: No acute cardiopulmonary findings. Reviewed, dictated and finalized at location A. PACKER
[2021-05-08 07:58] VITALS: BP 168/80; PULSE 84; RESP 18; TEMP 35.6; O2SAT 97
[2021-05-08 08:47] LABS: Basophils Absolute Auto 0.06 K/mm3 (0.00-0.10); Basophils Percent Auto 0.9 % (0.0-1.0); Eosinophils Absolute Auto 0.31 K/mm3 (0.02-0.50); Eosinophils Percent Auto 4.5 % (1.0-6.0); Hematocrit 37.1 % (37.0-46.0); Hemoglobin 11.4 g/dL (12.4-15.3); Immature Granulocyte Absolute 0.03 K/mm3 (0.00-0.00); Immature Granulocyte Percent A 0.4 % (0.0-0.0); Lymphocytes Absolute Auto 1.27 K/mm3 (1.10-4.50); Lymphocytes Percent Auto 18.4 % (18.0-42.0); Mean Corpuscular HGB Conc 30.7 g/dL (32.0-36.0); Mean Corpuscular Hemoglobin 24.3 pg (27.0-31.0); Mean Corpuscular Volume 79.1 fL (78.0-102.0); Monocytes Absolute Auto 0.64 K/mm3 (0.10-0.90); Monocytes Percent Auto 9.2 % (2.0-11.0); Neutrophils Absolute Auto 4.6 K/mm3 (1.7-7.2); Neutrophils Percent Auto 66.6 % (50.0-70.0); Platelet Count Result 247 K/mm3 (150-420); Red Blood Count 4.69 M/mm3 (4.70-6.10); Red Cell Distribution Width 17.8 % (11.6-14.4); White Blood Count 6.9 K/mm3 (4.8-10.8)
[2021-05-08] MEDS: SODIUM CHLORIDE 0.9% IV 500 ML 999 ML IV CONT (08:47)
--- NOTE | 2021-05-08 08:47 | PC.NURSE ---
Pt attempted to use urinal was unable to void. Pt stood without difficulty. Gait was steady. Pt aware of need for sample and states he will attempt later.
[2021-05-08 09:12] LABS: Alanine Aminotransferase 28 U/L (16-63); Albumin Level 3.4 g/dL (3.4-5.0); Alkaline Phosphatase 62 U/L (46-116); Anion Gap 11 mmol/L (8-16); Aspartate Amino Transferase 27 U/L (15-37); Bilirubin,Total 0.4 mg/dL (0.00-1.00); Blood Urea Nitrogen 16 mg/dL (7-18); Calcium 8.3 mg/dL (8.5-10.1); Carbon Dioxide 28 mmol/L (21-32); Chloride 104 mmol/L (98-108); Estimated CRCL calculation 47 ml/min; Estimated Glomerular Filt Rate > 60; Glucose 121 mg/dL (70-99); Osmolality Calculated 298 mOsm/kg (285-295); Potassium 4.8 mmol/L (3.5-5.1); Sodium 143 mmol/L (136-145); Total Protein 7.4 g/dL (6.4-8.2)
[2021-05-08 09:13] LABS: Ethanol < 3 mg/dL (0-6)
[2021-05-08 09:38] VITALS: BP 142/92; PULSE 69; RESP 22; O2SAT 97
[2021-05-08 09:38] LABS: Add Urine Microscopic? NO; Appearance Urine Clear (Clear); Bilirubin Urine Negative (Negative); Blood Urine Negative (Negative); Color Urine Light Yellow (Yellow); Glucose Urine UA Negative (Negative); Ketones Urine Negative (Negative); Leukocyte Esterase Ur Negative (Negative); Nitrate Urine Negative (Negative); Protein Urine Negative (Negative); Specific Grav Ur >= 1.030 (1.010-1.020); Urobilinogen Urine 0.2 mg/dL (0.2-1.0)
[2021-05-08 09:57] LABS: Amphetamine Screen Urine Negative (Negative); Barbiturate Screen Urine Negative (Negative); Benzodiazepines Screen Urine Negative (Negative); Cannabinoid Screen Urine Negative (Negative); Cocaine Screen Urine Negative (Negative); Methadone Screen Urine Negative (Negative); Opiate Screen Urine Negative (Negative); Phencyclidine Screen Urine Negative (Negative)
--- NOTE | 2021-05-08 10:22 | ECG_ITS ---
Measurements Intervals [place] Rate: 71 P: 74 CT: 229 QRS: 49 QRSD: 98 T: 89 QT: 405 QTc: 440 Interpretive Statements SINUS RHYTHM WITH FIRST DEGREE AV BLOCK BORDERLINE T WAVE ABNORMALITY- HIGH LATERAL LEADS BASELINE ARTIFACT- I, III, AVL ABNORMAL ECG Electronically Signed On 05-08-2021 10:39:16 [employer] by Den Huber D.O.
--- NOTE | 2021-05-08 10:34 | ED.DIZZY ---
HPI - Dizziness General Chief Complaint: Dizziness Stated Complaint: DIZZY PALE CLAMMY Time Seen by Provider: 05/08/21 07:40 Source: patient, family and RN notes reviewed Mode of arrival: ambulatory Limitations: no limitations History of Present Illness MD elicited complaint: dizziness and vertigo Pertinent past history: BPPV and syncope Onset (ago): hour(s) (3) Timing: sudden onset and awoke with symptoms Severity: mild Description: room spinning History of similar symptoms: Yes Exacerbating factors: nothing Relieving factors: nothing Associated symptoms: nausea Associated neuro symptoms: other (none) Stroke scale total: 0 Related Data Home Medications Medication Instructions Recorded Confirmed mirtazapine 30 mg PO QPM 07/07/19 08/17/20 sertraline 50 mg PO DAILY 07/07/19 08/17/20 aspirin [Adult Low Dose Aspirin] 81 mg PO DAILY 11/18/19 05/08/21 metoprolol succinate 25 mg PO DAILY 11/18/19 05/08/21 rosuvastatin 10 mg tablet 40 mg PO DAILY 06/15/20 05/08/21 furosemide [Lasix] 20 mg PO DAILY 05/08/21 05/08/21 Allergies Allergy/AdvReac Type Severity Reaction Status Date / Time No Known Allergies Allergy Verified 05/08/21 07:58 Review of Systems Review of Systems: All systems reviewed & are unremarkable except as noted in HPI and below PMFSH Past Medical History Medical History Anxiety CAD (coronary artery disease) Depression Dysphagia GERD (gastroesophageal reflux disease) Heartburn Schatzki's ring Surgical History Surgical History History of appendectomy Hx of CABG Family History Family History Father Cancer Mother Cancer Social History Social History Smoking packs per day: 1 Smoking cigarettes per day: 20.0 Years smoked: 49 Smoking pack-years: 49.00 Smoking status: Never smoker Tobacco type: cigarettes Second hand tobacco smoke exposure: No Alcohol intake: current Drinks per week: 3 Alcohol use details: beer Substance use: never Gender identity (if verbalized by the patient): Male Spiritual care concerns: No Exam Const: General: no acute distress Orientation/consciousness: patient oriented x3 Limitations: no limitations HENMT: Head: normal to inspection Ears: TM's normal bilaterally and external ear abnormal General nose exam: Normal external nose present and Normal nares present Face and sinus: normal facial exam Eyes: Conjunctivae: conjunctivae normal Pupils: Equal, round and reactive pupils present EOM: EOMs intact bilaterally Neck: Neck: normal visual inspection and no lymphadenopathy Chest: Chest palpation & inspection: normal inspection of the chest Resp: Effort & Inspection: normal respiratory effort Auscultation: clear to auscultation bilaterally Cardio: Rate: regular rate Rhythm: regular rhythm GI: Auscultation: normal bowel sounds : General: Yes no CVA tenderness Male General Exam: Yes normal external exam Testes: Testes normal Back/Spine/Pelvis: Back: no CVA tenderness Skin: General skin exam: normal color Rashes: no rashes Neuro: General: patient oriented x3, moves all extremities, no meningeal signs, no focal motor deficits and CN's II-XI intact bilaterally Cranial nerves: Yes Nystagmus not present Speech: normal speech Extrem: General: normal to inspection Psych: Appearance: grossly normal and well kempt Mental Status: mental status grossly normal Affect: normal affect Thought content: Yes Normal thought content present Course Course Emergency Course: Pt was stable in the ED. Workup wasnegative. will tx for vertigo. Reevaluation(s) Reevaluation #1: VSS. no acute sxs. Date: 05/08/21 Time: 08:35 Vital Signs Vital signs: Vital Signs Temperature 35.6 C L 05/08/21 07:58 Pulse Ra
[2021-05-08] MEDS: MECLIZINE HCL 25 MG TABLET PO (11:03)
[2021-05-08 11:05] VITALS: BP 124/72; PULSE 70; RESP 16; O2SAT 97
== END 2021-05-08 11:15 | disposition home or self-care (01) ==
PROVIDERS: Emergency Provider Emergency Medicine; PCP Nurse Practitioner
DX: H81.10 Benign paroxysmal vertigo, unspecified ear (principal); I25.10 Atherosclerotic heart disease of native coronary artery without angina pectoris; K21.9 Gastro-esophageal reflux disease without esophagitis; K22.2 Esophageal obstruction; F17.210 Nicotine dependence, cigarettes, uncomplicated; F32.A Depression, unspecified; F41.9 Anxiety disorder, unspecified; Z95.1 Presence of aortocoronary bypass graft; Z79.899 Other long term (current) drug therapy
CPT/HCPCS: 36415; 70450; 71045; 80053; 80307; 81003; 85025; 93005; 96360; 99283; 99284; A9270; J7040

== ENCOUNTER 2021-11-07 15:00 | Outpatient (RCR) | payer MEDICARE, MEDICAID, SELFPAY | END 2021-11-07 23:59 | disposition home or self-care (01) | LOC: ANHAUDIO 15:00 | PROVIDERS: PCP Nurse Practitioner; Visit Provider Nurse Practitioner | DX: Z46.1 Encounter for fitting and adjustment of hearing aid (principal) | CPT/HCPCS: 92592; 99199; V5264 ==

== ENCOUNTER 2021-12-12 09:10 | Outpatient (RCR) | payer MEDICARE, MEDICAID, SELFPAY | END 2021-12-12 23:59 | disposition home or self-care (01) | LOC: ANHAUDIO 09:10 | PROVIDERS: PCP Nurse Practitioner; Referring Provider Nurse Practitioner; Visit Provider Nurse Practitioner | DX: Z46.1 Encounter for fitting and adjustment of hearing aid (principal) | CPT/HCPCS: V5014 ==

== ENCOUNTER 2022-03-20 08:02 | Outpatient (CLI) | payer MEDICARE, MEDICAID, SELFPAY | END 2022-03-20 08:03 | disposition home or self-care (01) | LOC: CHSAUDIO 08:04 | PROVIDERS: PCP Nurse Practitioner; Visit Provider Nurse Practitioner | DX: H91.93 Unspecified hearing loss, bilateral (principal) | CPT/HCPCS: 92557; 92567 ==

== ENCOUNTER 2024-08-10 00:45 | Day surgery (SDC) | payer MEDICARE, MEDICAID, SELFPAY ==
[2024-08-06 15:22] VITALS: BMI 23.5
--- NOTE | 2024-08-06 15:42 | PC.NURSE ---
Spoke with ZENA-SPOUSE regarding medication PLAVIX. SPOUSE verbalizes understanding that the last dose is to be taken on 08/06/2024 and the Endoscopist will instruct them when to restart after the procedure.
[2024-08-10 10:07] VITALS: BP 143/77; PULSE 72; RESP 19; TEMP 36.6; O2SAT 97
--- NOTE | 2024-08-10 10:11 | WPDANESEPPF ---
Anes - Initial Pre Proc Eval Procedure: Operation Date: 08/10/24 11:15 Proposed Procedures p Esophagogastroduodenoscopy EGD - Naveen Murrieta MD Date/Time: 08/10/24 10:11 Surgeon: Naveen Murrieta MD Pre Op Diagnosis: Gerd, Dysphagia Patient Data Age: 74 Gender: M Height: 1.68 m Weight: 70.3 kg Last Vital Signs Temp 36.6 C 08/10/24 10:07 Pulse 72 08/10/24 10:07 Resp 19 08/10/24 10:07 BP 143/77 H 08/10/24 10:07 Pulse Ox 97 08/10/24 10:07 O2 Del Method Room Air 08/10/24 10:07 Allergies Allergy/AdvReac Type Severity Reaction Status Date / Time No Known Allergies Allergy Verified 08/10/24 10:04 Home Medications ?Medication ?Instructions ?Recorded ?Confirmed ?Type mirtazapine 30 mg tablet 30 mg PO QPM 07/07/19 08/10/24 History sertraline 50 mg tablet 50 mg PO DAILY 07/07/19 08/06/24 History aspirin 81 mg tablet,delayed 81 mg PO DAILY 11/18/19 08/10/24 History release (Adult Low Dose Aspirin) metoprolol succinate 25 mg 25 mg PO DAILY 11/18/19 08/10/24 History tablet,extended release 24 hr rosuvastatin 10 mg tablet 40 mg PO DAILY 06/15/20 08/06/24 History furosemide 20 mg tablet (Lasix) 20 mg PO DAILY 05/08/21 08/06/24 History omeprazole 20 mg capsule,delayed 20 mg PO DAILY #30 caps 06/27/21 08/06/24 Rx release cetirizine 10 mg tablet 10 mg PO DAILY 08/06/24 08/10/24 History clopidogrel 75 mg tablet 75 mg PO DAILY 08/06/24 08/10/24 History ezetimibe 10 mg tablet 10 mg PO DAILY 08/06/24 08/10/24 History famotidine 20 mg tablet 20 mg PO DAILY 08/06/24 08/10/24 History lisinopril 2.5 mg tablet 2.5 mg PO DAILY 08/06/24 08/10/24 History metoprolol succinate 50 mg 50 mg PO DAILY 08/06/24 08/10/24 History tablet,extended release 24 hr mirtazapine 45 mg tablet 45 mg PO HS 08/06/24 08/10/24 History rosuvastatin 40 mg tablet 40 mg PO HS 08/06/24 08/10/24 History sertraline 100 mg tablet 100 mg PO DAILY 08/06/24 08/10/24 History tamsulosin 0.4 mg capsule 0.4 mg PO DAILY 08/06/24 08/10/24 History Patient hx anesthesia problems: none Family hx anesthesia problems: none Results Review: All pre-operative results and documents have been reviewed as part of the pre-operative evaluation. [facility], [facility] Past Medical History Medical History (Updated 01/31/22 @ 13:48 by Naveen Murrieta MD) Colon cancer screening Schatzki's ring GERD (gastroesophageal reflux disease) CAD (coronary artery disease) Dysphagia Depression Anxiety Heartburn Surgical History Surgical History (Updated 08/10/24 @ 10:14 by Vicente Kimble MD) H/O mitral valve repair H/O aortic valve replacement Hx of CABG History of appendectomy Family History Family History Father Cancer Mother Cancer Social History Social History Smoking packs per day: 1 Smoking cigarettes per day: 20.0 Years smoked: 49 Smoking pack-years: 49.00 Smoking status: Former smoker Tobacco type: cigarettes Second hand tobacco smoke exposure: No Alcohol intake: former Substance use: never Living arrangements: with family Gender identity (if verbalized by the patient): Male Spiritual care concerns: No Anes - Eval Final PreProcedure Day of Procedure 08/10/24 10:11 Patient weight: normal Heart: regular rate and rhythm Lungs: clear to auscultation Airway: Mallampati scale class II Neurological: alert and oriented Last oral intake: >/= 8 hours ASA classification: III Emergent: no Anesthetic plan: proceed Anesthesia type and monitoring: general GIVS and standard monitoring Results Review: All pre-operative results and documents have been reviewed as part of the pre-operative evaluation. Informed Consent: The patient's anesthetic plan and its attendant risks and benefits were discussed with the patient/family/POA. Questions were solicited and answers provided to the satisfaction of the patient/family/POA.
[2024-08-10] MEDS: GENTAMICIN 80MG/SOD CHL 50 ML 80 MG/50 ML BAG 100 MG IVPB (10:20)
[2024-08-10] MEDS: LACTATED RINGERS 1,000 ML 150 ML IV CONT (10:21)
--- NOTE | 2024-08-10 10:39 | PM.HPGS ---
History of Present Illness History of Present Illness Consent: Risks, benefits, and alternatives have been discussed and questions answered. Patient agrees to proceed with procedure. Chief complaint: Gerd, Dysphagia Narrative: Farooq Franks is a 74 year old male with dysphagia, h/o esophageal ring dilated previously Review of Systems Review of Systems: All systems reviewed & are unremarkable except as noted in HPI and below PMFSH Past Medical History Medical History (Updated 01/31/22 @ 13:48 by Naveen Murrieta MD) Colon cancer screening Schatzki's ring GERD (gastroesophageal reflux disease) CAD (coronary artery disease) Dysphagia Depression Anxiety Heartburn Surgical History Surgical History (Updated 08/10/24 @ 10:14 by Vicente Kimble MD) H/O mitral valve repair H/O aortic valve replacement Hx of CABG History of appendectomy Family History Family History Father Cancer Mother Cancer Social History Social History Smoking packs per day: 1 Smoking cigarettes per day: 20.0 Years smoked: 49 Smoking pack-years: 49.00 Smoking status: Former smoker Tobacco type: cigarettes Second hand tobacco smoke exposure: No Alcohol intake: former Substance use: never Living arrangements: with family Gender identity (if verbalized by the patient): Male Spiritual care concerns: No Meds Home Medications and Allergies Home Medications ?Medication ?Instructions ?Recorded ?Confirmed ?Type mirtazapine 30 mg tablet 30 mg PO QPM 07/07/19 08/10/24 History sertraline 50 mg tablet 50 mg PO DAILY 07/07/19 08/06/24 History aspirin 81 mg tablet,delayed 81 mg PO DAILY 11/18/19 08/10/24 History release (Adult Low Dose Aspirin) metoprolol succinate 25 mg 25 mg PO DAILY 11/18/19 08/10/24 History tablet,extended release 24 hr rosuvastatin 10 mg tablet 40 mg PO DAILY 06/15/20 08/06/24 History furosemide 20 mg tablet (Lasix) 20 mg PO DAILY 05/08/21 08/06/24 History omeprazole 20 mg capsule,delayed 20 mg PO DAILY #30 caps 06/27/21 08/06/24 Rx release cetirizine 10 mg tablet 10 mg PO DAILY 08/06/24 08/10/24 History clopidogrel 75 mg tablet 75 mg PO DAILY 08/06/24 08/10/24 History ezetimibe 10 mg tablet 10 mg PO DAILY 08/06/24 08/10/24 History famotidine 20 mg tablet 20 mg PO DAILY 08/06/24 08/10/24 History lisinopril 2.5 mg tablet 2.5 mg PO DAILY 08/06/24 08/10/24 History metoprolol succinate 50 mg 50 mg PO DAILY 08/06/24 08/10/24 History tablet,extended release 24 hr mirtazapine 45 mg tablet 45 mg PO HS 08/06/24 08/10/24 History rosuvastatin 40 mg tablet 40 mg PO HS 08/06/24 08/10/24 History sertraline 100 mg tablet 100 mg PO DAILY 08/06/24 08/10/24 History tamsulosin 0.4 mg capsule 0.4 mg PO DAILY 08/06/24 08/10/24 History Allergies Allergy/AdvReac Type Severity Reaction Status Date / Time No Known Allergies Allergy Verified 08/10/24 10:04 Vital Signs Vital Signs - 24 hr 08/10/24 10:07 Temperature 98 F Pulse Rate 72 Respiratory Rate 19 Blood Pressure 143/77 H Pulse Oximetry 97 Oxygen Delivery Room Air Exam Const: General: comfortable and no acute distress HENMT: Face/Nose/Sinus: Normal nares present Eyes: General: appearance normal, both eyes and all related structures Neck: Neck: no JVD Resp: Auscultation: clear to auscultation bilaterally Cardio: Rate: regular rate Rhythm: regular rhythm GI: Inspection: non-distended GI Palp: Yes Soft to palpation Skin: General skin exam: normal color Neuro: Speech: normal speech Extrem: General: normal to inspection Psych: Mental Status: mental status grossly normal Assessment and Plan Assessment and plan (1) Dysphagia: Code(s): R13.10 - Dysphagia, unspecified Status: Acute Assessment and Plan: egd
[2024-08-10] MEDS: AMPICILLIN 2 GM/NS 100 ML 2 GM/100 ML BAG IVPB (10:41)
[2024-08-10 10:48] VITALS: BP 151/79; PULSE 72; RESP 20; O2SAT 99
[2024-08-10 10:58] VITALS: BP 116/43; PULSE 61; RESP 20; O2SAT 99
[2024-08-10 11:08] VITALS: BP 125/70; PULSE 65; RESP 20; O2SAT 99
== END 2024-08-10 11:28 | disposition home or self-care (01) ==
PROVIDERS: Referring Provider Internal Medicine Gastroenterology; Visit Provider Internal Medicine Gastroenterology
PROC: 0DJ08ZZ Inspection of Upper Intestinal Tract, Via Natural or Artificial Opening Endoscopic (ICD-10-PCS; CPT 43249; principal; 2024-08-10 11:15)
DX: K22.2 Esophageal obstruction (principal); K21.9 Gastro-esophageal reflux disease without esophagitis; I25.10 Atherosclerotic heart disease of native coronary artery without angina pectoris; F32.A Depression, unspecified; F41.9 Anxiety disorder, unspecified; Z79.82 Long term (current) use of aspirin; Z79.02 Long term (current) use of antithrombotics/antiplatelets; Z98.890 Other specified postprocedural states; Z95.2 Presence of prosthetic heart valve; Z95.1 Presence of aortocoronary bypass graft; Z87.891 Personal history of nicotine dependence; Z80.9 Family history of malignant neoplasm, unspecified
CPT/HCPCS: 43249; C1726; J0290; J1580; J2704; J7120